=== PATIENT | male | born 1960 | race Caucasian/White ===

== ENCOUNTER 2017-07-15 14:45 | Observation (INO) | payer OTHER ==
[~2017-07-15] VITALS: Ht 188 cm; Wt 103.2 kg
[2017-07-15 15:47] LABS: HEMATOCRIT 44.8 % (38.0-50.0); HEMOGLOBIN 15.4 G/DL (12.5-16.6); MCH 31.6 PG (29.0-34.0); MCHC 34.4 G/DL (30.0-36.0); PLATELET COUNT 243 K/uL (156-360); RBC DIS.WIDTH-CV 13.2 % (11.8-14.6); RBC DIS.WIDTH-SD 44.3 % (39-53); RED BLOOD COUNT 4.87 M/uL (4.00-5.50); WHITE BLOOD COUNT 7.9 K/uL (4.1-10.2)
[2017-07-15 16:00] LABS: CHLORIDE 105 mEq/L (99-109); POTASSIUM 3.9 mEq/L (3.7-5.4); SODIUM 139 mEq/L (136-147)
[2017-07-15 16:01] LABS: GLUCOSE 95 mg/dL (70-99)
[2017-07-15 16:05] LABS: CREATININE 0.9 mg/dL (0.6-1.3); GFR ESTIMATE (CALCULATED) > 59 mL/min/ (58.99-99999)
[2017-07-15 16:06] LABS: UREA NITROGEN (BUN) 17 mg/dL (9-23)
[2017-07-15 16:14] LABS: TROP-I INTERPRETATION NEGATIVE; TROPONIN-I < 0.01 ng/mL (0.0-0.30)
[2017-07-15] MEDS ORDERED: STIOLTO RESPIMAT4 GM IH (17:30)
[2017-07-15 21:16] VITALS: BP 134/82
[2017-07-15 21:53] LABS: TROP-I INTERPRETATION NEGATIVE; TROPONIN-I 0.01 ng/mL (0.0-0.30)
[2017-07-16 00:58] VITALS: BP 126/74
[2017-07-16 03:57] LABS: HEMATOCRIT 42.4 % (38.0-50.0); HEMOGLOBIN 14.3 G/DL (12.5-16.6); MCH 30.8 PG (29.0-34.0); MCHC 33.7 G/DL (30.0-36.0); MCV 91.2 FL (86-99); PLATELET COUNT 224 K/uL (156-360); RBC DIS.WIDTH-CV 13.2 % (11.8-14.6); RBC DIS.WIDTH-SD 44.3 % (39-53); RED BLOOD COUNT 4.65 M/uL (4.00-5.50); WHITE BLOOD COUNT 8.1 K/uL (4.1-10.2)
[2017-07-16 04:12] LABS: CHLORIDE 110 mEq/L (99-109); SODIUM 142 mEq/L (136-147)
[2017-07-16 04:14] LABS: GLUCOSE 100 mg/dL (70-99)
[2017-07-16 04:15] LABS: TOTAL PROTEIN 6.2 g/dL (6.4-8.3)
[2017-07-16 04:16] LABS: TOTAL BILIRUBIN 0.3 mg/dL (0.0-1.0)
[2017-07-16 04:18] LABS: ALKALINE PHOSPHATASE 41 IU/L (3-129); CREATININE 0.8 mg/dL (0.6-1.3); GFR ESTIMATE (CALCULATED) > 59 mL/min/ (58.99-99999)
[2017-07-16 04:19] LABS: UREA NITROGEN (BUN) 16 mg/dL (9-23)
[2017-07-16 04:20] LABS: AST (GOT) 19 IU/L (2-34)
[2017-07-16 04:21] LABS: ALT (GPT) 13 IU/L (3-49)
[2017-07-16 04:28] LABS: TROP-I INTERPRETATION NEGATIVE; TROPONIN-I 0.01 ng/mL (0.0-0.30)
[2017-07-16 04:36] VITALS: BP 129/73
[2017-07-16 08:43] VITALS: BP 137/88
[2017-07-16 12:00] VITALS: BP 123/66
[2017-07-16 16:00] VITALS: BP 147/92
[2017-07-16] MEDS ORDERED: ASPIRIN EC325 MG PO (17:04)
[2017-07-16] MEDS ORDERED: NICOTINE PATCH1 EAC2 TD (17:04)
== END 2017-07-16 18:26 | disposition home or self-care (01) ==
LOC: EME 14:45 → EDOF 18:54 → 5WEST 18:54 → ENRESERV 19:00 → 5WEST 20:55
PROVIDERS: Internal Medicine
DX: R07.9 Chest pain, unspecified (principal); F17.200 Nicotine dependence, unspecified, uncomplicated; R94.31 Abnormal electrocardiogram [ECG] [EKG]; M79.604 Pain in right leg; G89.29 Other chronic pain; R91.8 Other nonspecific abnormal finding of lung field
CPT/HCPCS: 71046; 71275; 80048; 80053; 84484; 85027; 93005; 94640; 99281; 99285; G0378; J1644; J7030